=== PATIENT | female | born 2000 | race Two or more races ===

== ENCOUNTER 2023-05-06 15:20 | Observation (INO) | payer MEDICAID, OTHER ==
[~2023-05-06] VITALS: Ht 160 cm; Wt 68.3 kg
[2023-05-06 15:40] VITALS: BP 97/62; PULSE 104; RESP 16; O2SAT 98
[2023-05-06 16:16] LABS: Urine Bacteria FEW /hpf (None Seen); Urine Blood 3+ /uL (Negative); Urine Clarity HAZY (Clear); Urine Color Yellow (Yellow); Urine Mucus FEW (None Seen); Urine Protein, UAD 1+ (Negative); Urine Specific Gravity 1.024 (1.001-1.035); Urine Urobilinogen Normal (Negative); Urine WBC 26 /hpf (0 - 5); Urine pH 7.5 (5.0-8.0)
[2023-05-06 16:31] LABS: Basophils # (auto) 0 10 ^3/uL (0-0.2); Basophils % (auto) 0.2 % (0.0-2.0); Eosinophils # (auto) 0.1 10 ^3/uL (0-0.8); Eosinophils % (auto) 0.5 % (0.0-7.0); Hemoglobin 10.8 g/dL (12.2-16.2); Lymphocytes # (auto) 2.8 10 ^3/uL (0.4-5.4); Lymphocytes % (auto) 19.7 % (10.0-50.0); Mean Corpuscular Hemoglobin 27.6 pg (28.0-32.0); Mean Corpuscular Hgb Conc. 32.7 g/dL (32.0-36.0); Mean Corpuscular Volume 84.4 fL (80.0-100.0); Monocytes # (auto) 0.7 10 ^3/uL (0-1.3); Monocytes % (auto) 5.2 % (0.0-12.0); Neutrophils # (auto) 10.7 10 ^3/uL (1.6-8.6); Neutrophils % (auto) 74.4 % (37.0-80.0); Red Blood Cells 3.91 10^6/uL (4.0-5.20); Red Cell Distribution Width 13.1 % (11.8-14.3); White Blood Cell 14.4 10^3/uL (4.4-10.8)
[2023-05-06 16:37] LABS: Chloride 108 mmol/L (98-107); Potassium 4.3 mmol/L (3.5-5.1); Sodium 135 mmol/L (136-145)
[2023-05-06 16:38] LABS: Anion Gap 6 (5-15); Carbon Dioxide 21 mmol/L (20-30)
[2023-05-06 16:43] LABS: Glucose 82 mg/dL (74-106)
[2023-05-06 16:43] LABS: Vaginal Trichomonas Not Present
[2023-05-06 16:44] LABS: Vaginal Bacteria Few; Vaginal Clue Cells None Seen; Vaginal Epithelial Cells Few
[2023-05-06 16:47] LABS: BUN/Creatinine Ratio 11.6 (10.0-20.0); Blood Urea Nitrogen < 5 mg/dL (9-23)
[2023-05-06] MEDS: TERBUTALINE SULFATE 1 MG/ML 1ML VIAL SC SCH (17:07)
[2023-05-06] MEDS ORDERED: PREN-96 PO (17:14)
[2023-05-06] MEDS ORDERED: NIF10C PO (17:15)
[2023-05-06 18:38] LABS: Amphetamine Screen, Urine Neg (NEGATIVE); Barbiturate Scree,Urine Neg (NEGATIVE); Benzodiazephine Screen, Urine Neg (NEGATIVE); Cannabinoid Screen, Urine Neg (NEGATIVE); Cocaine Screen, Urine Neg (NEGATIVE); Opiate Scree,Urine Neg (NEGATIVE); Phencyclidine Screen, Urine Neg (NEGATIVE)
[2023-05-06] MEDS ORDERED: NITR-87 PO (18:51)
== END 2023-05-06 19:55 | disposition home or self-care (01) ==
LOC: ER 15:20 → LDRP 16:10
PROVIDERS: ADMIT Obstetrics & Gynecology; ATTEND Obstetrics & Gynecology
DX: O46.93 Antepartum hemorrhage, unspecified, third trimester (principal); O36.8130 Decreased fetal movements, third trimester, not applicable or unspecified; O99.353 Diseases of the nervous system complicating pregnancy, third trimester; G43.909 Migraine, unspecified, not intractable, without status migrainosus; Z3A.31 31 weeks gestation of pregnancy; Z79.899 Other long term (current) drug therapy; Z86.2 Personal history of diseases of the blood and blood-forming organs and certain disorders involving the immune mechanism
CPT/HCPCS: 36415; 59025; 76815; 80048; 80307; 81001; 81002; 84702; 85025; 87210; 96360; 96372; 99284; G0378; J3105

== ENCOUNTER → 2023-07-13 | Emergency (ER) | payer MEDICAID ==
[~2023-07-13] VITALS: Ht 162.6 cm; Wt 65.2 kg
[~2023-07-13] MED LIST: NIF10C PO; NITR-87 PO; ONDANSETRON HCL 4 MG/2 ML VIAL IV ONE; PREN-96 PO
[2023-07-13 18:52] LABS: Urine Bacteria None Seen /hpf (None Seen)
[2023-07-13 19:17] LABS: Urine Blood 1+ /uL (Negative); Urine Budding Yeast OCCASIONAL /hpf (None Seen); Urine Clarity Clear (Clear); Urine Color Light-Yellow (Yellow); Urine Protein, UAD Negative (Negative); Urine Specific Gravity 1.007 (1.001-1.035); Urine Urobilinogen Normal (Negative); Urine WBC 29 /hpf (0 - 5); Urine pH 5.5 (5.0-9.0)
[2023-07-13 19:20] LABS: Basophils # (auto) 0 10 ^3/uL (0-0.2); Eosinophils # (auto) 0 10 ^3/uL (0-0.8); Lymphocytes # (auto) 1.7 10 ^3/uL (0.4-5.4); Mean Corpuscular Hgb Conc. 31.2 g/dL (32.0-36.0); White Blood Cell 22.6 10^3/uL (4.4-10.8)
[2023-07-13 19:22] LABS: Basophils % (auto) 0.1 % (0.0-2.0); Eosinophils % (auto) 0.1 % (0.0-7.0); Hematocrit 33.2 % (36.0-46.0); Hemoglobin 10.4 g/dL (12.2-16.2); Lymphocytes % (auto) 7.7 % (10.0-50.0); Mean Corpuscular Hemoglobin 23.8 pg (28.0-32.0); Mean Corpuscular Volume 76.1 fL (80.0-100.0); Monocytes % (auto) 4.5 % (0.0-12.0); Neutrophils # (auto) 19.7 10 ^3/uL (1.6-8.6); Neutrophils % (auto) 87.6 % (37.0-80.0); Red Blood Cells 4.36 10^6/uL (4.0-5.20); Red Cell Distribution Width 15.5 % (11.8-14.3)
[2023-07-13 19:33] LABS: Alanine Aminotransferase 20 U/L (7-40); Albumin 4.1 g/dL (3.2-4.8); Alkaline Phosphatase 159 U/L (46-116); Anion Gap 10 (5-15); Aspartate Aminotransferase 13 U/L (13-40); BUN/Creatinine Ratio 9.1 (10.0-20.0); Blood Urea Nitrogen 7 mg/dL (9-23); Calcium 9.1 mg/dL (8.5-10.1); Carbon Dioxide 20 mmol/L (20-30); Chloride 105 mmol/L (98-107); Glucose 118 mg/dL (74-106); Potassium 3.5 mmol/L (3.5-5.1); Sodium 135 mmol/L (136-145)
[2023-07-13 19:34] LABS: Bilirubin, Total 0.6 mg/dL (0.2-1.0); Total Protein 6.7 g/dL (5.7-8.2)
[2023-07-13 19:39] LABS: INR 1.12 (0.9-1.15); Partial Thromboplastin Time 32.4 SEC (24.5-34.5); Prothrombin Time 11.8 sec (9.3-11.8)
[2023-07-13] MEDS: SODIUM CHLORIDE 0.9% 1,000 ML IV ONE (20:45)
[2023-07-13] MEDS: cefTRIAXone 1GM/50ML D5W 50 ML IV ONE (20:56)
[2023-07-13] MEDS: KETOROLAC TROMETH 30 MG/ML 1ML VIAL IV ONE (20:57)
[2023-07-13] MEDS: METOCLOPRAMIDE HCL 5MG/ml INJ 2ml VIAL IV ONE (20:57)
[2023-07-13] MEDS: ACETAMINOPHEN 500 MG TAB PO ONE (20:57)
[2023-07-13] MEDS: FAMOTIDINE (10MG/ML) 2ML VL IV ONE (21:03)
[2023-07-13] MEDS: diphenhdrAMINE HCL 50 MG/1 ML VL IV ONE (21:08)
[2023-07-13 21:50] VITALS: BP 106/64; PULSE 121; RESP 17; TEMP 100.5; O2SAT 100
== END ==
LOC: ER 17:43
DX: N39.0 Urinary tract infection, site not specified (principal); M54.50 Low back pain, unspecified; D72.829 Elevated white blood cell count, unspecified; G97.1 Other reaction to spinal and lumbar puncture; R11.2 Nausea with vomiting, unspecified
CPT/HCPCS: 36415; 72131; 80053; 81001; 83605; 83880; 84484; 85025; 85610; 85730; 87040; 93005; 96365; 96375; 99285; J0696; J1200; J1885; J2765; J7030